=== PATIENT | male | born 1975 | race African-American/Black ===

== ENCOUNTER 2016-11-07 14:41 | Emergency (ER) | payer OTHER, MEDICAID ==
[~2016-11-07] VITALS: Wt 104.5 kg
[2016-11-07] MEDS ORDERED: LORAZEPAM 2 MG INJ IM STA (15:01)
[2016-11-07 15:32] LABS: BASOPHILS % 0.5 % (0.0-2.0); EOSINOPHILS # 0.1 10^3/ul (0.0-0.5); EOSINOPHILS % 1.2 % (0.0-7.0); HEMATOCRIT 39.6 % (42.0-52.0); HEMOGLOBIN 13.2 g/dl (14.0-18.0); LYMPHOCYTES # 2.9 10^3/ul (0.8-2.9); LYMPHOCYTES % 31.7 % (15.0-51.0); MEAN CORPUSCULAR HEMOGLOBIN 28.8 pg (29.0-33.0); MEAN CORPUSCULAR HGB CONC 33.3 g/dl (32.0-37.0); MEAN CORPUSCULAR VOLUME 86.3 fl (82.0-101.0); MEAN PLATELET VOLUME 9.9 fl (7.4-10.4); MONOCYTE # 0.6 10^3/ul (0.3-0.9); MONOCYTES % 7.1 % (0.0-11.0); NEUTROPHIL # 5.4 10^3/ul (1.6-7.5); NEUTROPHILS % 59.5 % (39.0-77.0); PLATELET COUNT 177 10^3/UL (140-440); RED BLOOD COUNT 4.59 10^6/ul (4.70-6.10); RED CELL DISTRIBUTION WIDTH 15.8 % (11.5-14.5)
[2016-11-07 15:33] LABS: CONDITION 1; LH ANALYZER COMMENTS 1
[2016-11-07 15:45] LABS: ADD UMIC NO; ALBUMIN 3.8 g/dl (3.3-4.9); CHLORIDE 104 mmol/L (97-110); SODIUM 142 mmol/L (135-144); URINE BILIRUBIN (Dip) NEGATIVE (NEGATIVE); URINE BLOOD (Dip) NEGATIVE (NEGATIVE); URINE COLOR LT. YELLOW (YELLOW); URINE GLUCOSE (Dip) NEGATIVE (NEGATIVE); URINE KETONES (Dip) NEGATIVE (NEGATIVE); URINE LEUKOCYTE ESTERASE (Dip) NEGATIVE (NEGATIVE); URINE NITRITE (Dip) NEGATIVE (NEGATIVE); URINE TOTAL PROTEIN (Dip) NEGATIVE (NEGATIVE); URINE UROBILINOGEN (Dip) 1.0 E.U./dL (0.1-1.0)
[2016-11-07 15:46] LABS: POTASSIUM 4.2 mmol/L (3.5-5.1)
[2016-11-07 15:48] LABS: ALBUMIN/GLOBULIN RATIO 1.26; ANION GAP 14 (8-16); ASPARTATE AMINO TRANSFERASE 42 IU/L (15-46); BILIRUBIN,INDIRECT 0.1 mg/dl (0-1.1); BILIRUBIN,TOTAL 0.1 mg/dl (0.2-1.3); BLOOD UREA NITROGEN 18 mg/dl (7-20); CARBON DIOXIDE 28 mmol/L (21-31); CREATININE 1.23 mg/dl (0.61-1.24); TOTAL PROTEIN 6.8 g/dl (6.1-8.1)
[2016-11-07 15:49] LABS: ALANINE AMINOTRANSFERASE 78 IU/L (13-69); ALKALINE PHOSPHATASE 74 IU/L (42-121); CALCIUM 8.8 mg/dl (8.4-10.2); GLUCOSE 95 mg/dl (70-220)
[2016-11-07 15:51] LABS: ACETAMINOPHEN < 10.0 ug/ml (10.0-30.0); ETHANOL < 10.0 mg/dl; SALICYLATE < 1.0 mg/dl (5.0-30.0)
[2016-11-07 16:20] LABS: BENZODIAZEPINES Negative (NEGATIVE)
[2016-11-07 16:24] LABS: BARBITURATES Negative (NEGATIVE); CANNABINOIDS Negative (NEGATIVE); COCAINE Negative (NEGATIVE); OPIATES Negative (NEGATIVE)
--- NOTE | 2016-11-07 16:25 | ERD ---
ER Documentation Chief Complaint Date/Time DATE: 11/07/16 TIME: 16:23 Chief Complaint SUICIDAL THOUGHTS FOR THE PAST FEW WKS. NO ETOH OR DRUGS. HALLUCINATIONS HPI 41-year-old man brought in by EMS for increasing auditory hallucinations and thoughts of killing himself. He has a long history of psychiatric illness and was recently admitted to a psychiatric facility in [place]. He has not been using his prescribed psychiatric medications and has had recent increasing symptoms. He states he wants to kill himself with a gun. He denies fevers or chills, no chest pain or shortness of breath, no vomiting or diarrhea. ROS All systems reviewed and are negative except as per history of present illness. PMhx/Soc Depression, psychosis History of Surgery: No Anesthesia Reaction: No Hx Neurological Disorder: No Hx Respiratory Disorders: No Hx Cardiac Disorders: No Hx Psychiatric Problems: No Hx Miscellaneous Medical Probl: No Hx Alcohol Use: No Hx Substance Use: No Hx Tobacco Use: No Smoking Status: Former smoker FmHx Family History: No diabetes Physical Exam Vitals Vital Signs Date Time Temp Pulse Resp B/P Pulse Ox O2 Delivery O2 Flow Rate FiO2 11/07/16 14:48 98.5 99 20 146/88 98 Physical Exam GENERAL: Well-developed, well-nourished, well-hydrated, flat affect HEENT: Moist mucous membranes, pink conjunctiva, no cervical spine tenderness or step-off deformities, no goiter, no jaundice or icterus, extraocular movements intact without pain. No submandibular induration, and no pharyngeal erythema NEURO: Alert and oriented 3, cranial nerves II through XII intact bilaterally, pupils equal round reactive to light, no focal deficits or facial asymmetry, sensation intact distally Strength 5/5 in upper and lower extremities bilaterally CARDIAC: Regular rate and rhythm, no murmurs rubs or gallops LUNGS: Clear bilaterally no wheezing crackles or stridor ABDOMEN: Soft nontender, no guarding, no rigidity, no rebound, no psoas sign no obturator sign. Normoactive bowel sounds SKIN: Warm and dry to touch, no abrasions, contusions, or hematomas, no lacerations, no ecchymosis, no target lesions, and without ulcers EXTREMITIES: No clubbing cyanosis or edema, calves are bilaterally symmetrical, no Homans sign, no popliteal cord sign. Distal pulses equal and bilateral PSYCH: Depressed flat affect Result Diagram: 11/07/16 1520 11/07/16 1520 Results 24 hrs Laboratory Tests Test 11/07/16 15:20 Acetaminophen Level < 10.0ug/ml Alanine Aminotransferase (ALT/SGPT) 78IU/L Albumin 3.8g/dl Albumin/Globulin Ratio 1.26 Alkaline Phosphatase 74IU/L Anion Gap 14 Aspartate Amino Transf (AST/SGOT) 42IU/L Basophils # 0.010^3/ul Basophils % 0.5% Blood Morphology Comment Blood Urea Nitrogen 18mg/dl Calcium Level 8.8mg/dl Carbon Dioxide Level 28mmol/L Chloride Level 104mmol/L Creatinine 1.23mg/dl Direct Bilirubin 0.00mg/dl Eosinophils # 0.110^3/ul Eosinophils % 1.2% Ethyl Alcohol Level < 10.0mg/dl Globulin 3.00g/dl Glucose Level 95mg/dl Hematocrit 39.6% Hemoglobin 13.2g/dl Indirect Bilirubin 0.1mg/dl Lymphocytes # 2.910^3/ul Lymphocytes % 31.7% Mean Corpuscular Hemoglobin 28.8pg Mean Corpuscular Hemoglobin Concent 33.3g/dl Mean Corpuscular Volume 86.3fl Mean Platelet Volume 9.9fl Monocytes # 0.610^3/ul Monocytes % 7.1% Neutrophils # 5.410^3/ul Neutrophils % 59.5% Nucleated Red Blood Cells # 0.010^3/ul Nucleated Red Blood Cells % 0.0/100WBC Platelet Count 93856^3/UL Potassium Level 4.2mmol/L Red Blood Count 4.5910^6/ul Red Cell Distribution Width 15.8% Salicylates Level < 1.0mg/dl Sodium Level 142mmol/L Total Bilirubin 0.1mg/dl Total Protein 6.8g/dl Urine Amphetamines Screen Negative Urine Barbiturates Negative Urine Benzodiazepines Screen Negative Urine Bilirubin NEGATIVE Urine Cannabinoids Negative Urine Clarity CLEAR Urine Cocaine Screen Negative Urine Color LT. YELLOW Urine Glucose NEGATIVE% Urine Hemoglobin NEGATIVE Urine Ketones NEGATIVE Urine Leukocyte Esterase NEGATIVE Urine Nitrite NEGATIVE Urine Opiates Screen Negative Urine Specific [place] 1.015 Urine Total Protein NEGATIVE Urine Urobilinogen 1.0 E.U./dL Urine pH 7.0 White Blood Count 9.010^3/ul Current Medications Medications (Trade) Dose Ordered Sig/Katina Route PRN Reason Start Time Stop Time Status Last Admin Dose Admin Lorazepam (Ativan) 1 mg ONCE STAT IM 11/07/16 15:01 11/07/16 15:03 DC 11/07/16 15:59 Procedures/MDM Security one-to-one watch was established and tele-psychiatrist consultation was ordered. Patient was also seen by social services technician here in the emergency department. CBC and electrolytes were normal, liver function tests were normal, urine drug screen was negative, urine analysis was negative for infection. Alcohol level is negative Patient's behavioral symptoms have stabilized while in the department. Patient is medically cleared and appropriate for psychiatric evaluation and work up. No e/o neurologic, toxic, infectious, or metabolic cause. Tele-psychiatrist recommended 5150 psychiatric hold and Risperdal 1 mg twice daily. I did administer Risperdal 0.5 mg p.o. 1 here in the emergency department. Patient will be transferred to accepting [facility] psychiatric facility. Departure Diagnosis: Primary Impression: Suicidal ideation Additional Impression: Depression Depression Type: major depressive disorder Major depression recurrence: single episode Active/Remission status: currently active Major depression episode severity: moderate Qualified Code: F32.1 - Moderate single current episode of major depressive disorder Condition: LEONOR Mejia MD Nov 07, 2016 16:25
--- NOTE | 2016-11-07 18:00 | PSY ---
Date/Time of Note Date/Time of Note DATE: 11/07/16 TIME: 17:45 Psychiatric Subjective Eval Consent Pt consented to telemedicine: Yes Subjective Evaluation Patient location: emergency Chief Complaint: SUICIDAL THOUGHTS FOR THE PAST FEW WKS. NO ETOH OR DRUGS. HALLUCINATIONS Reason for consult: Suicidal Ideation History of present illness 41M BIB VOL for worsening AH x 1-2 weeks with SI with plans to shoot himself if he had a gun. Patient reports a long history of hearing voices since he was young. Reports noncompliance with medications due to not wanting to make the voices go away completely as they are his only friend. He was mostly recently hospitalized in [place] 2 weeks ago but states he left too early and never was able to refill his scripts. Currently endorses continued SI, worsening, unmanageable AH and depression as well as racing thoughts. Past psychiatric history multiple IP, mostly recently hospitalized in [place] OP: denied but is interested in getting outpatient follow up Rx: Risperdal, Alianax, Ambien in his possession SA: multiple but most recently, 1 month ago took a handful of his medications and ran into traffic Hospitalization: Suicidal Attempt(s) Family History maternal and paternal side with unknown mental issues for which some family members take medication Medical history Problems Medical Problems: (1) Depression Status: Acute (2) Suicidal ideation Status: Acute Substance Abuse Substance use: other (Reports drinking yesterday, 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) Substance abuse history: Yes Prior substance abuse treatmen: No Social History Marital status: single Level of education: 3rd grade, special education DPA/Conservatorship: No Occupation/Alf: on disability Psychiatric Objective Eval Review of Systems: Review of Systems: Not Applicable Physical Examination: Sleep: Adequate Appetite: Adequate Energy: Adequate Interest: Adequate Mental Status Examination: Appearance: Disheveled Eye Contact: Poor Psychomotor Activity: Other (restless) Behavior: Cooperative Speech: Pressured AFFECT: Constricted Mood: Depressed Though Process: Circumstantial Thought Content: Hallucinations (+AH) Suicidal: Yes (intermittent) Homicidal: No On 72 hour hold: No Orientation: x4 Cognition: Alert Insight: Mild Judgement: Impared Attention Span: Distractible Laboratory Results Laboratory Tests Test 11/07/16 15:20 Acetaminophen Level < 10.0ug/ml Alanine Aminotransferase (ALT/SGPT) 78IU/L Albumin 3.8g/dl Albumin/Globulin Ratio 1.26 Alkaline Phosphatase 74IU/L Anion Gap 14 Aspartate Amino Transf (AST/SGOT) 42IU/L Basophils # 0.010^3/ul Basophils % 0.5% Blood Morphology Comment Blood Urea Nitrogen 18mg/dl Calcium Level 8.8mg/dl Carbon Dioxide Level 28mmol/L Chloride Level 104mmol/L Creatinine 1.23mg/dl Direct Bilirubin 0.00mg/dl Eosinophils # 0.110^3/ul Eosinophils % 1.2% Ethyl Alcohol Level < 10.0mg/dl Globulin 3.00g/dl Glucose Level 95mg/dl Hematocrit 39.6% Hemoglobin 13.2g/dl Indirect Bilirubin 0.1mg/dl Lymphocytes # 2.910^3/ul Lymphocytes % 31.7% Mean Corpuscular Hemoglobin 28.8pg Mean Corpuscular Hemoglobin Concent 33.3g/dl Mean Corpuscular Volume 86.3fl Mean Platelet Volume 9.9fl Monocytes # 0.610^3/ul Monocytes % 7.1% Neutrophils # 5.410^3/ul Neutrophils % 59.5% Nucleated Red Blood Cells # 0.010^3/ul Nucleated Red Blood Cells % 0.0/100WBC Platelet Count 31109^3/UL Potassium Level 4.2mmol/L Red Blood Count 4.5910^6/ul Red Cell Distribution Width 15.8% Salicylates Level < 1.0mg/dl Sodium Level 142mmol/L Total Bilirubin 0.1mg/dl Total Protein 6.8g/dl Urine Amphetamines Screen Negative Urine Barbiturates Negative Urine Benzodiazepines Screen Negative Urine Bilirubin NEGATIVE Urine Cannabinoids Negative Urine Clarity CLEAR Urine Cocaine Screen Negative Urine Color LT. YELLOW Urine Glucose NEGATIVE% Urine Hemoglobin NEGATIVE Urine Ketones NEGATIVE Urine Leukocyte Esterase NEGATIVE Urine Nitrite NEGATIVE Urine Opiates Screen Negative Urine Specific [place] 1.015 Urine Total Protein NEGATIVE Urine Urobilinogen 1.0 E.U./dL Urine pH 7.0 White Blood Count 9.010^3/ul Assessment and Plan Assessment/Diagnosis [place] I: Schizophrenia spectrum and other psychotic disorder [place] II: deferred [place] III: see medical chart [place] IV: primary social support [place] V: GAF 30 Recommendation/Plan Medication Management Recommend restarting psychotropic medications. Consider Risperdal 1mg BID Follow-up/Disposition Recommend admission to inpatient psychiatric unit as VOLUNTARY Admission. If not possible, recommend 5150 hold for admission. 5150 Recommendation: Patient at this time is willingly accepting inpatient admission. If VOLUNTARY admission is not possible, would then recommend 5150 hold for inpatient admission as patient remains a danger to self and gravely disabled. JUANI GALLO MD Nov 07, 2016 17:55
[2016-11-07] MEDS ORDERED: RISPERIDONE 0.25 MG TAB PO ONE (18:30)
[2016-11-07] MEDS ORDERED: ZOLPIDEM 5 MG TAB PO PRN (22:00)
[2016-11-08] MEDS ORDERED: NICOTINE (21 MG/24 HR) PATCH TRANSDERM ONE (10:00)
[2016-11-08] MEDS ORDERED: ALPRAZOLAM 0.25 MG TAB PO ONE (10:00)
[2016-11-08] MEDS ORDERED: RISPERIDONE 0.25 MG TAB PO ONE (10:00)
[2016-11-08] MEDS ORDERED: HYDROCODONE/APAP (10/325) TAB PO ONE (14:30)
[2016-11-08 14:47] VITALS: BP 121/65; PULSE 78; RESP 16; TEMP 97.6
== END 2016-11-08 15:48 ==
LOC: E/R 14:41
DX: F32.1 Major depressive disorder, single episode, moderate (principal); R45.851 Suicidal ideations; R40.2142 Coma scale, eyes open, spontaneous, at arrival to emergency department; R40.2252 Coma scale, best verbal response, oriented, at arrival to emergency department; R40.2362 Coma scale, best motor response, obeys commands, at arrival to emergency department; Z87.891 Personal history of nicotine dependence
CPT/HCPCS: 80053; 80306; 80307; 81003; 85025; J2060; 36415; 96372

== ENCOUNTER 2016-11-30 00:38 | Emergency (ER) | payer OTHER ==
[~2016-11-30] VITALS: Ht 188 cm; Wt 115.5 kg
[2016-11-30 00:42] VITALS: Ht 188 cm; Wt 115.5 kg
--- NOTE | 2016-11-30 01:47 | ERA ---
ER Documentation Chief Complaint Date/Time DATE: 11/30/16 TIME: 01:46 Chief Complaint suicidal ideations x 1 day HPI This is a 41 male comes in with suicidal ideations for 1 day. No fevers no chills. No nausea no vomiting. No auditory or visual hallucinations. ROS All systems reviewed and are negative except as per history of present illness. Medications Home Meds Unable to Obtain Active Prescriptions or Reported Meds Allergies Allergies: Coded Allergies: No Known Allergy (Unverified , 11/30/16) PMhx/Soc Medical and Surgical Hx: pt denies Surgical Hx History of Surgery: No Anesthesia Reaction: No Hx Neurological Disorder: No Hx Respiratory Disorders: No Hx Cardiac Disorders: No Hx Psychiatric Problems: Yes ([place]IZOPHRENIA) Hx Miscellaneous Medical Probl: No Hx Alcohol Use: No Hx Substance Use: No Hx Tobacco Use: No Smoking Status: Never smoker Physical Exam Vitals Vital Signs Date Time Temp Pulse Resp B/P Pulse Ox O2 Delivery O2 Flow Rate FiO2 11/30/16 00:42 97.4 84 18 132/81 97 Physical Exam Const: [] Head: Atraumatic Eyes: Normal Conjunctiva ENT: Normal External Ears, Nose and Mouth. Neck: Full range of motion..~ No meningismus. Resp: Clear to auscultation bilaterally Cardio: Regular rate and rhythm, no murmurs Abd: Soft, non tender, non distended. Normal bowel sounds Skin: No petechiae or rashes Back: No midline or flank tenderness Ext: No cyanosis, or edema Neur: Awake and alert Psych: Normal Mood and Affect Procedures/MDM Patient's behavioral symptoms have stabilized while in the department. Patient is medically cleared and appropriate for psychiatric evaluation and work up. No e/o neurologic, toxic, infectious, or metabolic cause. Patient evaluated by telemetry psychiatry. Placed on 5150 hold. Pending BHU placement Departure Diagnosis: Primary Impression: Suicidal ideation Condition: Stable MOISES SAUCEDO Nov 30, 2016 01:47
[2016-11-30 01:49] LABS: ADD UMIC NO; URINE BILIRUBIN (Dip) NEGATIVE (NEGATIVE); URINE BLOOD (Dip) NEGATIVE (NEGATIVE); URINE COLOR LT. YELLOW (YELLOW); URINE GLUCOSE (Dip) NEGATIVE (NEGATIVE); URINE KETONES (Dip) NEGATIVE (NEGATIVE); URINE LEUKOCYTE ESTERASE (Dip) NEGATIVE (NEGATIVE); URINE NITRITE (Dip) NEGATIVE (NEGATIVE); URINE TOTAL PROTEIN (Dip) NEGATIVE (NEGATIVE); URINE UROBILINOGEN (Dip) 0.2 E.U./dL (0.1-1.0)
--- NOTE | 2016-11-30 01:51 | PSY ---
Date/Time of Note Date/Time of Note DATE: 11/30/16 TIME: 01:45 Psychiatric Subjective Eval Consent Pt consented to telemedicine: Yes Subjective Evaluation Patient location: emergency Chief Complaint: suicidal ideations x 1 day Reason for consult: suicidal History of present illness patient is a 41 yo male with PPH Of schioaffective do living in a hotel who came to the ER due to feeling suicidal for 2 days, he states that he was admitted last to a psychiatric hospital one month ago when he tried to jump in front of a car and OD, he states that he wants to do that again because "he is tired of living, " he has been feeling depressed, hopeless and helpless for months due to housing and financial hardship and no family support, he has been hearing voices telling him to kill himself and other people and states that he is afraid he might hurt other people, he has been feeling paranoid for months, unable to sleep for days, took his risperdal and haldol 2 days ago , denies any drug or alcohol abuse. Past psychiatric history past suicidal attempt yes last was one month ago Medical history Problems Medical Problems: (1) Depression Status: Acute (2) Suicidal ideation Status: Acute Allergies: Coded Allergies: No Known Allergy (Unverified , 11/30/16) Substance Abuse Substance use: No known substance abuse Social History Marital status: single Level of education: hs DPA/Conservatorship: No Occupation/Skilled Nursing: unemployed Psychiatric Objective Eval Review of Systems: Review of Systems: Not Applicable Physical Examination: Physical Examination: Applicable Sleep: Insomnia Appetite: Decreased Energy: Decreased Interest: Decreased Mental Status Examination: Appearance: Disheveled Eye Contact: Fair Psychomotor Activity: Agitated Behavior: Cooperative Speech: Clear AFFECT: Depressed Mood: Depressed Though Process: Linear Thought Content: Delusions Suicidal: Yes Homicidal: Yes On 72 hour hold: No Orientation: x3 Cognition: Alert Insight: Impared Judgement: Impared Attention Span: Intact Assessment and Plan Assessment/Diagnosis [place] I: schizoaffective disorder depressed type [place] II: deferred [place] III: as per record [place] IV: poor social support [place] V: salena 25 Recommendation/Plan Medication Management haldol 5 mg po bid ativan 1 mg po bid ambien 10 mg po qhs Follow-up/Disposition Please admit patient on unvoluntary status due to Danger to self and to others In my opinion, patient currently MEETS criterion for inpatient care and CANNOT be safely treated at a lower level of care today as evidenced by the following risk factors: Current and Recent Suicidal Ideation Previous suicide attempt and severe self-destructive behavior Intense feelings of hopelessness and lack of future orientation. Significant recent DETERIORATION in function, behavior and thought processes Command hallucinations with violent content Substance ABUSE in conjunction with another psychiatric disorder Non-Compliance with Outpatient Treatment Patient has failed outpatient and requires further inpatient assessment Medication changes require observation unavailable at a lower level of care. 5150 Recommendation: NAHUN Chang MD Nov 30, 2016 01:51
[2016-11-30 02:10] LABS: ADD SCAN DIFF NO
[2016-11-30 02:17] LABS: BASOPHILS % 0.4 % (0.0-2.0); EOSINOPHILS # 0.1 10^3/ul (0.0-0.5); EOSINOPHILS % 2.4 % (0.0-7.0); LYMPHOCYTES # 2.6 10^3/ul (0.8-2.9); LYMPHOCYTES % 48.2 % (15.0-51.0); MEAN CORPUSCULAR HEMOGLOBIN 28.2 pg (29.0-33.0); MEAN CORPUSCULAR HGB CONC 32.6 g/dl (32.0-37.0); MEAN CORPUSCULAR VOLUME 86.7 fl (82.0-101.0); MEAN PLATELET VOLUME 11.3 fl (7.4-10.4); MONOCYTE # 0.4 10^3/ul (0.3-0.9); MONOCYTES % 6.8 % (0.0-11.0); NEUTROPHIL # 2.2 10^3/ul (1.6-7.5); NEUTROPHILS % 41.8 % (39.0-77.0); PLATELET COUNT 160 10^3/UL (140-415); RED BLOOD COUNT 4.96 10^6/ul (4.70-6.10); RED CELL DISTRIBUTION WIDTH 15.7 % (11.5-14.5); WHITE BLOOD COUNT 5.3 10^3/ul (4.8-10.8)
[2016-11-30 02:21] LABS: ALBUMIN 4.3 g/dl (3.3-4.9); CHLORIDE 104 mmol/L (97-110); SODIUM 145 mmol/L (135-144)
[2016-11-30 02:22] LABS: POTASSIUM 3.9 mmol/L (3.5-5.1)
[2016-11-30 02:23] LABS: ANION GAP 17 (8-16); BILIRUBIN,INDIRECT 0.2 mg/dl (0-1.1); BILIRUBIN,TOTAL 0.2 mg/dl (0.2-1.3); CARBON DIOXIDE 28 mmol/L (21-31); CREATININE 1.08 mg/dl (0.61-1.24)
[2016-11-30 02:24] LABS: ALANINE AMINOTRANSFERASE 36 IU/L (13-69); ALBUMIN/GLOBULIN RATIO 1.48; ALKALINE PHOSPHATASE 53 IU/L (42-121); ASPARTATE AMINO TRANSFERASE 23 IU/L (15-46); BLOOD UREA NITROGEN 16 mg/dl (7-20); CALCIUM 9.4 mg/dl (8.4-10.2); GLUCOSE 129 mg/dl (70-220); TOTAL PROTEIN 7.2 g/dl (6.1-8.1)
[2016-11-30 02:27] LABS: ACETAMINOPHEN < 10.0 ug/ml (10.0-30.0); ETHANOL < 10.0 mg/dl; SALICYLATE < 1.0 mg/dl (5.0-30.0)
[2016-11-30 02:35] LABS: BARBITURATES Negative (NEGATIVE); BENZODIAZEPINES Positive (NEGATIVE); CANNABINOIDS Negative (NEGATIVE); COCAINE Negative (NEGATIVE); OPIATES Negative (NEGATIVE)
[2016-11-30] MEDS ORDERED: ZOLPIDEM 5 MG TAB PO PRN (12:00)
[2016-11-30] MEDS ORDERED: NICOTINE (21 MG/24 HR) PATCH TRANSDERM ONE (12:00)
[2016-11-30] MEDS: HALOPERIDOL 5 MG TAB PO SCH ×2 (12:10→20:35)
[2016-11-30] MEDS: LORAZEPAM 1 MG TAB PO SCH ×2 (12:10→20:35)
--- NOTE | 2016-11-30 14:46 | QN ---
Documentation Comment Observation Note: Time: 4 hours Family Hx: Negative for diabetes Evaluation: Multiple exams showed improving symptoms and no evidence of clinical decompensation. HEENA GOLDBERG MD Nov 30, 2016 14:46
[2016-11-30] MEDS ORDERED: RISP0.5T21 PO (15:51)
[2016-11-30] MEDS ORDERED: ALPR2TAB PO (15:52)
[2016-11-30] MEDS ORDERED: ZOLP5TAB PO (15:52)
--- NOTE | 2016-11-30 22:25 | QN ---
Documentation Comment Observation Note: Time: 4 hours Family Hx: No Hypertension Evaluation: Patient continues to have decompensation of psychiatric illness. Pending U placement MOISES SAUCEDO Nov 30, 2016 22:25
[2016-12-01] MEDS: LORAZEPAM 1 MG TAB PO SCH (09:52)
[2016-12-01] MEDS: HALOPERIDOL 5 MG TAB PO SCH (09:52)
[2016-12-01 11:41] VITALS: BP 122/86; PULSE 66; RESP 18; TEMP 98.3
== END 2016-12-01 13:50 ==
LOC: E/R 00:38
DX: F29 Unspecified psychosis not due to a substance or known physiological condition (principal); R45.851 Suicidal ideations
CPT/HCPCS: 36415; 80053; 80306; 80307; 81003; 85025; 99285